=== PATIENT | female | born 1990 | race Caucasian/White ===

== ENCOUNTER 2024-01-01 18:08 | Emergency (ER) | payer MEDICARE, SELFPAY ==
[2024-01-01 18:09] VITALS: BP 130/92
[2024-01-01 19:12] VITALS: BMI 29.3
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
[2024-01-01] MEDS: MOTRIN 600 MG PO (20:06)
[2024-01-01] MEDS: CYCLOGYL 1% EYE DROPS 2 DROP OPHTH (20:07)
[2024-01-01 20:15] VITALS: BP 110/78
== END 2024-01-01 20:27 | disposition home or self-care (01) ==
LOC: EMR 18:08
PROVIDERS: EMERGENCY PHYSICIAN Emergency Medicine; FAMILY PHYSICIAN Family Medicine
DX: S05.01XA Injury of conjunctiva and corneal abrasion without foreign body, right eye, initial encounter (principal); W50.0XXA Accidental hit or strike by another person, initial encounter; F17.200 Nicotine dependence, unspecified, uncomplicated
CPT/HCPCS: 99283